=== PATIENT | female | born 1975 | race Caucasian/White ===

== ENCOUNTER 2016-11-07 15:00 | Emergency (ER) | payer BC ==
[2016-11-07 15:59] LABS: BASO % 0 % (0-3); EOS # 0.1 x10^3/uL (0.0-0.7); EOS % 1 % (0-3); HEMOGLOBIN 13.5 g/dL (12.0-15.5); LYMPH # 1.8 x10^3/uL (1.0-4.8); LYMPH % 22 % (24-48); MEAN CORPUSCULAR HEMOGLOBIN 32 pg (25-35); MEAN CORPUSCULAR HGB CONC 35 g/dL (31-37); MEAN CORPUSCULAR VOLUME 91 fL (79-100); MONO # 0.7 x10^3/uL (0.0-1.1); MONO % 9 % (0-9); NEUT # 5.6 x10^3uL (1.8-7.7); NEUT % 68 % (31-73); PLATELET COUNT 442 x10^3/uL (140-400); RED BLOOD COUNT 4.29 x10^6/uL (3.50-5.40); RED CELL DISTRIBUTION WIDTH 12.2 % (11.5-14.5); WHITE BLOOD COUNT 8.2 x10^3/uL (4.0-11.0)
[2016-11-07 16:01] LABS: CALCIUM 9.9 mg/dL (8.5-10.1); CREATININE 0.7 mg/dL (0.6-1.0); DIRECT BILIRUBIN 0.1 mg/dL (0.0-0.2); GFR 92.2; POTASSIUM 3.5 mmol/L (3.5-5.1); TOTAL BILIRUBIN 0.3 mg/dL (0.2-1.0); TOTAL PROTEIN 7.9 g/dL (6.4-8.2)
[2016-11-07 16:20] LABS: BACTERIA,URINE FEW /HPF (0-FEW); BILIRUBIN,URINE NEG (NEG); CLARITY,URINE CLEAR; COLOR,URINE STRAW; GLUCOSE,URINE NEG (NEG); NITRITE,URINE NEG (NEG); RBC,URINE RARE /HPF (0-2); UROBILINOGEN,URINE 0.2 mg/dL (0.2 mg/dL); WBC,URINE OCC /HPF (0-4)
[2016-11-07 16:21] LABS: SQUAMOUS EPITHELIAL CELL,UR MOD /LPF
--- NOTE | 2016-11-07 16:22 | PHYS DOC ---
Past History Past Medical History: Other Past Surgical History: Appendectomy, Cholecystectomy Alcohol Use: None Drug Use: None Adult General Chief Complaint Chief Complaint: FLANK PAIN HPI HPI 41-year-old female presenting to the emergency department today with right flank pain. She reports being approximately 9-11 weeks . Her pain is sharp nonradiating intermittent and without alleviating factors. She feels like it feels like one of her UTIs that she hasn't had for a long time. She denies abdominal pain nausea vomiting or diarrhea. She denies vaginal bleeding or changes in vaginal fluid. Review of systems is negative for fevers chills nausea vomiting diarrhea vaginal bleeding. All other review of systems is negative unless otherwise noted in history of present illness. Pertinent physical exam findings showed a soft nontender abdomen. Mild right CVA tenderness. Otherwise unremarkable. ED course: 41-year-old female approximately 10 weeks by last menstrual period who presents the emergency department with right-sided flank pain. Examination vital signs afebrile normal blood pressure. Pulse normal. Unremarkable. Physical exam as above. Ultrasound obtained which confirmed intrauterine . Blood work shows mild thrombocytosis. She reports this is chronic. Chemistry panel otherwise unremarkable. Urinalysis was obtained. Bacteriuria present. Keflex ordered upon discharge. The patient was then discharged home in stable condition to follow up with their primary care physician over the next 2-3 days. They were to return if their symptoms worsened or if they were concerned for any reason. [id number] discharge instructions and return precautions were given. Patient's questions were answered to their satisfaction. Patient is comfortable plan. Review of Systems Review of Systems SEE ABOVE. Physical Exam Physical Exam Constitutional: Well developed, well nourished, no acute distress, non-toxic appearance. HENT: Normocephalic, atraumatic, bilateral external ears normal, oropharynx moist, no oral exudates, nose normal. [] Eyes: PERRLA, EOMI, conjunctiva normal, no discharge. Neck: Normal range of motion, no tenderness, supple, no stridor. [] Cardiovascular:Heart rate regular rhythm, no murmur [] Lungs & Thorax: Bilateral breath sounds clear to auscultation Abdomen: Bowel sounds normal, soft, no tenderness, no masses, no pulsatile masses. [] Skin: Warm, dry, no erythema, no rash. [] Back: cva tenderness present Extremities: No tenderness, no cyanosis, no clubbing, ROM intact, no edema. Neurologic: Alert and oriented X 3, normal motor function, normal sensory function, no focal deficits noted. Psychologic: Affect normal, judgement normal, mood normal. [] Current Patient Data Vital Signs Vital Signs Date Time Temp Pulse Resp B/P (MAP) Pulse Ox O2 Delivery O2 Flow Rate FiO2 11/07/16 15:05 98.0 89 16 100 Room Air Lab Results Laboratory Tests Test 11/07/16 15:30 White Blood Count 8.2 x10^3/uL (4.0-11.0) Red Blood Count 4.29 x10^6/uL (3.50-5.40) Hemoglobin 13.5 g/dL (12.0-15.5) Hematocrit 39.0 % (36.0-47.0) Mean Corpuscular Volume 91 fL (79-100) Mean Corpuscular Hemoglobin 32 pg (25-35) Mean Corpuscular Hemoglobin Concent 35 g/dL (31-37) Red Cell Distribution Width 12.2 % (11.5-14.5) Platelet Count 442 x10^3/uL (140-400) H Neutrophils (%) (Auto) 68 % (31-73) Lymphocytes (%) (Auto) 22 % (24-48) L Monocytes (%) (Auto) 9 % (0-9) Eosinophils (%) (Auto) 1 % (0-3) Basophils (%) (Auto) 0 % (0-3) Neutrophils # (Auto) 5.6 x10^3uL (1.8-7.7) Lymphocytes # (Auto) 1.8 x10^3/uL (1.0-4.8) Monocytes # (Auto) 0.7 x10^3/uL (0.0-1.1) Eosinophils # (Auto) 0.1 x10^3/uL (0.0-0.7) Basophils # (Auto) 0.0 x10^3/uL (0.0-0.2) Sodium Level 137 mmol/L (136-145) Potassium Level 3.5 mmol/L (3.5-5.1) Chloride Level 100 mmol/L (98-107) Carbon Dioxide Level 28 mmol/L (21-32) Anion Gap 9 (6-14) Blood Urea Nitrogen 8 mg/dL (7-20) Creatinine 0.7 mg/dL (0.6-1.0) Estimated GFR (Cockcroft-Gault) 92.2 Glucose Level 90 mg/dL (70-99) Calcium Level 9.9 mg/dL (8.5-10.1) Total Bilirubin 0.3 mg/dL (0.2-1.0) Direct Bilirubin 0.1 mg/dL (0.0-0.2) Aspartate Amino Transferase (AST) 12 U/L (15-37) L Alanine Aminotransferase (ALT) 17 U/L (14-59) Alkaline Phosphatase 55 U/L (46-116) Total Protein 7.9 g/dL (6.4-8.2) Albumin 4.0 g/dL (3.4-5.0) EKG EKG [] Radiology/Procedures Radiology/Procedures [] Course & Med Decision Making Course & Med Decision Making Pertinent Labs and Imaging studies reviewed. (See chart for details) [] Dragon Disclaimer Dragon Disclaimer This chart was dictated in whole or in part using Voice Recognition software in a busy, high-work load, and often noisy Emergency Department environment. It may contain unintended and wholly unrecognized errors or omissions. Departure Departure: Impression: Primary Impression: Right flank pain Additional Impression: Bacteriuria Disposition: 01 HOME, SELF-CARE Condition: STABLE Referrals: PCP,UNKNOWN (PCP) SHIRIN MARTINEZ MD Patient Instructions: Flank Pain Additional Instructions: Thank you for allowing us to participate in your care today. Take your antibiotic for bacteria in the urine. 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 If you do not have a primary care provider you can ask for a list of our primary care providers. Return to the emergency department you have any new or concerning findings. This should be evaluated by the primary care physician and any necessary consulting services for continued management within a few days after discharge. Return to emergency room if you have any new or concerning symptoms including but not limited to fever, chills, nausea, vomiting, intractable pain, any new rashes, chest pain, shortness of air, uncontrolled bleeding, difficulty breathing, and/or vision loss. Scripts Cephalexin (KEFLEX) 250 Mg Capsule 1 CAP PO QID, #28 CAP Prov: SHARI FUCHS MD 6/3/17 Problem Qualifiers SHARI FUCHS MD Nov 07, 2016 16:22
[2016-11-07] MEDS ORDERED: ACETAMINOPHEN 325 MG TABLET PO ONE (16:45)
--- NOTE | 2016-11-07 16:51 | RAD ---
OB <14 WKS Clinical Indication: RT FLANK PAIN Comparison: None. Technique: Real-time ultrasound imaging of the pelvis using transabdominal window is performed. Findings: Cervix length is approximately 2.6 cm. Uterus length approximately 9.2 cm. There is intrauterine gestational sac. No evidence of perigestational hemorrhage. [place]-rump length 1.9 cm, 8 weeks and 3 days. Yolk sac not identified. Ultrasound EDC June 16, 2017. Estimate of heart rate 180 bpm. There is normal blood flow in the maternal ovaries. Ovary size is symmetric. No obvious pelvic free fluid. IMPRESSION: Single live intrauterine gestation, estimated sonographic gestational age 8 weeks and 6 days. Electronically signed by: Gerry Alicea MD (11/07/2016 4:47 PM)
[2016-11-07] MEDS ORDERED: CEPH-263 PO (17:14)
[2016-11-07 17:40] VITALS: BP 109/59
== END 2016-11-07 17:38 | disposition home or self-care (01) ==
LOC: ER 15:00
DX: O26.891 Other specified pregnancy related conditions, first trimester (principal); R10.9 Unspecified abdominal pain; R82.71 Bacteriuria; Z3A.08 8 weeks gestation of pregnancy; Z90.49 Acquired absence of other specified parts of digestive tract
CPT/HCPCS: 36415; 76801; 80048; 80076; 81001; 84702; 85027; 86901; 99285-25